=== PATIENT | female | born 1990 | race Caucasian/White ===

== ENCOUNTER → 2024-10-20 16:28 | Outpatient (CLI) | payer OTHER, SELFPAY ==
--- NOTE | 2024-10-20 16:29 | DI.US.S_ITS ---
PROCEDURE: US PELVIC COMPLETE INDICATIONS: Abnormal uterine bleeding TECHNIQUE: Real-time scanning was performed of the pelvic organs, with image documentation. Additional endovaginal scanning was necessary due to incomplete visualization of the adnexal and endometrial structures by transabdominal scanning. COMPARISON: None. FINDINGS: Uterus: 8.8 x 3.8 x 5.1 cm. Endometrium is within normal limits for age measuring 8 mm. Overall heterogeneous echotexture. Nabothian cysts are seen. Ovaries: Right ovary measures 3 cc. Left ovary is prominent measuring 11 cc, with a possible hemorrhagic cyst measuring 1.8 x 1.9 cm. Other: No pathologic free abdominal or pelvic fluid. IMPRESSION: No acute sonographic abnormality. Prominent left ovary with a possible 1.9 x 1.8 cm hemorrhagic cyst, favored physiologic for this age demographic. Dictated by: Julian Curran M.D. on 10/20/2024 at 21:53 Approved by: Julian Curran M.D. on 10/20/2024 at 21:55
== END ==
PROVIDERS: PCP Family Medicine; Referring Provider Family Medicine; Visit Provider Family Medicine
DX: N93.9 Abnormal uterine and vaginal bleeding, unspecified (principal)
CPT/HCPCS: 76830; 76856

== ENCOUNTER → 2024-10-20 17:24 | Outpatient (CLI) | payer OTHER, SELFPAY ==
[2024-10-20 18:16] LABS: Add Manual Diff / Slide Review NO; Basophils Absolute Auto 100 /uL (0-100); Basophils Percent Auto 0.6 % (0-2); Eosinophils Absolute Auto 300 /uL (0-450); Eosinophils Percent Auto 2.1 % (2-4); Hematocrit 42.3 % (36-46); Hemoglobin 14.2 g/dL (12.0-16.0); Lymphocytes Absolute Auto 3900 /uL (1100-4500); Lymphocytes Percent Auto 32.2 % (25-40); Mean Corpuscular HGB Conc 33.5 % (30-36); Mean Corpuscular Hemoglobin 27.8 PG (26-34); Mean Corpuscular Volume 83.1 fL (80-100); Monocytes Absolute Auto 1100 /uL (0-900); Monocytes Percent Auto 9.1 % (3-14); Neutrophils Absolute Auto 6700 /uL (1500-7000); Platelet Count 403 X10^3/uL (150-400); Red Blood Cell Count 5.09 X10^6/uL (4.0-5.2); Red Cell Distribution Width 13.4 % (11.6-14.8)
[2024-10-20 18:29] LABS: Hemoglobin A1C% w Est Avg Glu 4.9 % (4.0-6.0)
[2024-10-20 18:45] LABS: Alanine Aminotransferase 26 IU/L (<35); Albumin 4.6 g/dL (3.5-5.0); Albumin Globulin Ratio 1.6 (1.0-2.8); Alkaline Phosphatase 54 U/L (38-126); Aspartate Aminotransferase 24 IU/L (14-36); BUN Creatinine Ratio 20.3 (6-22); Bilirubin Total 0.4 mg/dL (0.2-1.3); Blood Urea Nitrogen 14 mg/dL (7-17); Calcium 9.7 mg/dL (8.4-10.2); Carbon Dioxide 23 mmol/L (22-32); Chloride 104 mmol/L (98-107); Cholesterol 168 mg/dL (140-199); Estimated Glomerular Filt Rate > 60 mL/min (>60); Globulin 2.9 g/dL (1.7-4.1); Glucose 116 mg/dL (70-100); HDL Cholesterol 47 mg/dL (40-60); HEMOLYSIS < 15 (0-50); LDL Cholesterol Calculated 90 mg/dL (<100); Potassium 4.2 mmol/L (3.4-5.1); Sodium 138 mmol/L (137-145); Total Protein 7.5 g/dL (6.3-8.2); Triglycerides 157 mg/dL (35-150)
[2024-10-20 19:01] LABS: Follicle Stimulating Hormone 2.97 mIU/mL; Luteinizing Hormone 7.43 mIU/mL; Prolactin 17.1 ng/mL (3.0-18.6)
[2024-10-20 19:15] LABS: TSH w/ Reflex to FT4 0.97 uIU/mL (0.47-4.68)
== END ==
PROVIDERS: PCP Family Medicine; Referring Provider Family Medicine; Visit Provider Family Medicine
DX: R63.5 Abnormal weight gain (principal); N93.9 Abnormal uterine and vaginal bleeding, unspecified; E66.811 Obesity, class 1; C43.9 Malignant melanoma of skin, unspecified
CPT/HCPCS: 36415; 80053; 80061; 83001; 83002; 83036; 84146; 84402; 84403; 84443; 85025

== ENCOUNTER → 2024-12-01 09:38 | Outpatient (CLI) | payer OTHER, SELFPAY | LOC: CAR 09:39 | PROVIDERS: PCP Family Medicine; Referring Provider Family Medicine; Visit Provider Family Medicine | DX: R55 Syncope and collapse (principal) | CPT/HCPCS: 93246; 93248 ==

== ENCOUNTER → 2024-12-08 15:57 | Outpatient (CLI) | payer OTHER, SELFPAY ==
[2024-12-08 17:19] LABS: HEMOLYSIS < 15 (0-50); Iron 92 ug/dL (37-170)
[2024-12-08 17:31] LABS: Percent Iron Saturation 24 % (15-50); Total Iron Binding Capacity 381 ug/dL (265-497); Transferrin 380 mg/dL (206-381)
== END ==
LOC: LAB 15:58
PROVIDERS: PCP Family Medicine; Referring Provider Family Medicine; Visit Provider Family Medicine
DX: N92.6 Irregular menstruation, unspecified (principal); R55 Syncope and collapse; N93.9 Abnormal uterine and vaginal bleeding, unspecified
CPT/HCPCS: 36415; 82397; 83540; 83550

== ENCOUNTER → 2025-03-09 09:26 | Outpatient (CLI) | payer OTHER, SELFPAY ==
[2025-03-09 10:11] LABS: Influenza A - CEPHEID Flu A NEGATIVE (NEGATIVE); Influenza B - CEPHEID Flu B NEGATIVE (NEGATIVE); Respiratory Syncytial Virus Negative (Negative)
[2025-03-09 10:12] LABS: COVID-19 CEPHEID 4-PLEX PCR Negative (Negative)
== END ==
PROVIDERS: PCP Family Medicine; Visit Provider Physician Assistant
DX: J06.9 Acute upper respiratory infection, unspecified (principal); R05.9 Cough, unspecified
CPT/HCPCS: 0241U; 87070

== ENCOUNTER → 2025-08-01 14:53 | Outpatient (CLI) | payer OTHER, SELFPAY ==
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
== END ==
PROVIDERS: PCP Family Medicine; Referring Provider Family Medicine; Visit Provider Family Medicine
DX: M54.42 Lumbago with sciatica, left side (principal)
CPT/HCPCS: 72100

== ENCOUNTER 2025-08-04 17:34 | Emergency (ER) | payer OTHER, SELFPAY ==
[2025-08-04 17:46] VITALS: BP 156/94; PULSE 87; RESP 18; TEMP 36.4; O2SAT 98; BMI 31.2
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
[2025-08-04] MEDS: KETOROLAC 30 MG/ML VIAL 15 MG IM (19:01)
[2025-08-04 19:15] VITALS: BP 149/89; PULSE 79; RESP 20; TEMP 36.5; O2SAT 98
== END 2025-08-04 19:15 | disposition home or self-care (01) ==
PROVIDERS: Emergency Provider Physician Assistant Medical; PCP Family Medicine
DX: S39.012A Strain of muscle, fascia and tendon of lower back, initial encounter (principal); V89.2XXA Person injured in unspecified motor-vehicle accident, traffic, initial encounter
CPT/HCPCS: 96372; 99283; J1885

== ENCOUNTER → 2025-09-28 13:11 | Outpatient (CLI) | payer OTHER, SELFPAY ==
[2025-09-28 14:49] LABS: Free T4, Direct Thyroxine 0.90 ng/dL (0.78-2.19)
[2025-09-28 15:03] LABS: Thyroid Stimulating Hormone 2.08 uIU/mL (0.47-4.68)
[2025-09-28 17:31] LABS: Follicle Stimulating Hormone 5.60 mIU/mL
== END ==
PROVIDERS: PCP Family Medicine; Referring Provider Family Medicine; Visit Provider Obstetrics & Gynecology
DX: N93.9 Abnormal uterine and vaginal bleeding, unspecified (principal)
CPT/HCPCS: 36415; 82397; 83001; 84439; 84443

== ENCOUNTER → 2025-10-03 10:25 | Outpatient (CLI) | payer OTHER, SELFPAY | PROVIDERS: PCP Family Medicine; Visit Provider Registered Nurse | DX: J02.9 Acute pharyngitis, unspecified (principal) | CPT/HCPCS: 87070 ==